=== PATIENT | female | born 1975 | race Caucasian/White ===

== ENCOUNTER → 2016-12-01 | Outpatient (CLI) | payer MEDICARE, OTHER ==
[~2016-12-01] MED LIST: 'PARAFON FORTE500 M1 PO; 'XANAX1 MG PO; ACETAMINOPHEN/O1 TA1 PO; AVPAK EXTENDED100 M1 PO; BRIN10TA PO; BUSPIRONE HCL15 MG PO; CEFADROXIL500 M1 PO; COMBIVENT1 AR1 IH; COUMADIN4 M2 PO; COUMADIN5 M2 PO; CYCLOBENZAPRINE10 MG PO; DAYPRO600 M1 PO; ENOXAPARIN80 MG/0.2 SC; HYDR12.5C PO; HYDROCODONE BIT1 T11 PO; LATU80TA PO; LEVOFLOXACIN500 MG PO; LIPITOR10 MG PO; LUNESTA3 MG PO; MEDROL DOSEPAK4 MG PO; MOBIC7.5 MG PO; MOTRIN600 MG PO; NEURONTIN300 MG PO; NORCO 325 MG-101 TAB PO; OXYCODONE HCL5 MG PO; PERCOCET 325 MG1 TA2 PO; PHENERGAN W/ DE30 ML PO; PRADAXA150 MG PO; PROAIR HFA0.09 MG/AC INH; PROAIR HFA8.5 GM IH; PROMETHAZINE D240 ML PO; REMERON15 M2 PO; ROBAXIN750 MG PO; SINGULAIR10 MG PO; TOPAMAX200 MG PO; TRAZODONE100 MG PO; TYLENOL325 M1 PO; VALIUM5 MG PO; VIIBRYD20 M1 PO; VIIBRYD40 PO; XANAX0.5 MG PO; XANAX2 MG PO; XARE15TA PO; ZITHROMAX Z PA250 MG PO; ZOFRAN ODT4 MG SL; [UNRECOGNIZED DRUG - OTHER] PO
== END ==
LOC: US 11-25 06:30
DX: R10.9 Unspecified abdominal pain (principal)

== ENCOUNTER → 2016-12-17 | Day surgery (SDC) | payer MEDICARE, OTHER ==
[2016-12-15 09:48] LABS: BILIRUBIN NEGATIVE (NEGATIVE); BLOOD NEGATIVE (NEGATIVE); CLARITY CLEAR (CLEAR); COLOR YELLOW (YELLOW); GLUCOSE NEGATIVE (NEGATIVE); KETONE NEGATIVE (NEGATIVE); LEUKO ESTERASE NEGATIVE (NEGATIVE); NITRITE NEGATIVE (NEGATIVE); PROTEIN NEGATIVE (NEGATIVE); UROBILINOGEN 0.2 E.U./dl (0.2-1.0)
[2016-12-15 09:54] LABS: BACTERIA TRACE; WBC 0-2 wbc/hpf (0-5)
[2016-12-15 10:06] LABS: BASO # 0.1 10*3/uL (0.0-0.1); BASO % 0.9 % (0.0-1.0); EOS # 0.4 10*3/uL (0.0-0.4); EOS % 2.6 % (1.0-4.0); HEMATOCRIT 45.1 % (37.0-47.0); HEMOGLOBIN 14.9 g/dl (12.0-16.0); IG # 0.1 10*3/uL (0.0-0.1); LYMPH # 4.1 10*3/uL (1.3-4.4); MEAN CELL VOLUME 95.6 fl (81.0-99.0); MEAN CORPUSCULAR HGB 31.6 pg (27.0-31.0); MEAN PLATELET VOLUME 10.6 fl (9.6-12.3); MONO # 0.7 10*3/uL (0.1-1.0); MONO % 5.1 % (3.0-9.0); NEUT # 8.7 10*3/uL (2.3-7.9); NEUT % 61.8 % (47.0-73.0); PLATELET COUNT AUTOMATED 263 10*3/uL (130-400); RED BLOOD COUNT 4.72 10*6/uL (4.10-5.10)
[2016-12-15 10:31] LABS: BUN 7 mg/dl (7-24); CARBON DIOXIDE 24 mmol/L (21-32); CHLORIDE 113 mmol/L (98-107); EST GLOM FILT AFRICAN AMERICAN > 60 ml/min; GLUCOSE 74 mg/dL (65-99); POTASSIUM 3.2 mmol/L (3.5-5.1); SODIUM 145 mmol/L (136-145)
[2016-12-15 10:46] LABS: PROTHROMBIN TIME 10.6 SECONDS (9.0-12.4)
[~2016-12-17] VITALS: Ht 165.1 cm; Wt 68.9 kg
[~2016-12-17] MED LIST changes: +ENOXAPARIN30 MG/0.2 SC; +VITAMIN B12-FO1 EACH PO
--- NOTE | ~2016-12-17 | O ---
[place], [place] OPERATIVE NOTE NAME: HILLARY BURRELL [facility] #: [id number] UNIT #: [id number] ROOM: DOCTOR: KENNY MOSLEY MD BIRTHDATE: [birth year] DOS: 12/17/2016 PREOPERATIVE DIAGNOSIS: Multiple anterior abdominal wall hematomas. POSTOPERATIVE DIAGNOSIS: Multiple anterior abdominal wall hematomas. PROCEDURE: Incision and drainage of right lower quadrant abdominal wall hematoma, aspiration of left lower quadrant abdominal wall hematoma, aspiration of right lower quadrant abdominal wall hematoma. SURGEON: Kenny Mosley MD [employer] PHOTOGRAPHER: [id number]. ANESTHESIA: LMA. INDICATIONS: This is a 41-year-old lady who has a history of multiple anterior abdominal wall hematomas secondary to use of subcutaneous Lovenox who is here for the above-mentioned procedure. The procedure and its complications were explained to the patient in detail. Complications that were discussed included but were not limited to, bleeding, infection, and prolonged pain. She agreed to proceed. DESCRIPTION OF PROCEDURE: After identifying the patient, the patient was brought to the operating suite and laid in the supine position. After induction of general anesthesia, timeout procedure was called and parts were then painted and draped in the usual sterile fashion. The biggest hematoma was in the left lower quadrant/periumbilical region. This was approximately 2 x 1 cm. A 20 gauge needle was inserted into the hematoma cavity and approximately 4-5 mL of old dark blood was aspirated. Thereafter, the site of the hematoma was palpated, and it completely disappeared. Therefore, an I and D was not performed on this site. There were 3 other smaller hematomas on the right side of the abdominal wall. These were individually marked and each of those were attempted to be aspirated, but aspiration could not be done because of possibly the blood being clotted off. The largest one of these was approximately 1 x 0.5 cm. An incision of approximately 2 mm was made with the help of a knife and the hematoma cavity was entered. With the help of Hemostat, old clotted blood was drained and the hematoma cavity was then packed with the help of quarter inch iodoform. Dressing was placed. Local anesthesia was infiltrated in all the 4 sites and the patient was then extubated and brought back to the recovery room in a stable fashion. There were no complications. Dr. Kenny Mosley, the attending surgeon, was present throughout the operating case. [place], [place] OPERATIVE NOTE NAME: HILLARY BURRELL UNIT #: [id number] ROOM: DOCTOR: KENNY MOSLEY MD BIRTHDATE: [birth year] Kenny Mosley MD CM:OPRECORD:OPERATIVE NOTE [id number] KENNY MOSLEY MD 12/21/16 1015 interface
[2016-12-17 07:30] VITALS: BP 132/71
[2016-12-17 08:32] VITALS: BP 102/70
[2016-12-17 08:45] VITALS: BP 113/81
[2016-12-17 09:00] VITALS: BP 120/82
[2016-12-17 09:15] VITALS: BP 109/70
[2016-12-17 09:23] VITALS: BP 112/70
== END | disposition home or self-care (01) ==
LOC: SDC 12-15 08:45
PROVIDERS: Surgery
DX: S30.1XXA Contusion of abdominal wall, initial encounter (principal); T45.515A Adverse effect of anticoagulants, initial encounter; F41.9 Anxiety disorder, unspecified; I10 Essential (primary) hypertension; J44.9 Chronic obstructive pulmonary disease, unspecified; F31.9 Bipolar disorder, unspecified; Z86.711 Personal history of pulmonary embolism; Z87.01 Personal history of pneumonia (recurrent); Z90.710 Acquired absence of both cervix and uterus; Z98.51 Tubal ligation status; F17.210 Nicotine dependence, cigarettes, uncomplicated; Z82.49 Family history of ischemic heart disease and other diseases of the circulatory system

== ENCOUNTER 2017-01-18 19:22 | Emergency (ER) | payer MEDICARE, OTHER ==
[~2017-01-18] VITALS: Ht 165.1 cm; Wt 64.4 kg
[2017-01-18 20:01] LABS: HEMATOCRIT 44.4 % (37.0-47.0); HEMOGLOBIN 14.8 g/dl (12.0-16.0); MEAN CELL VOLUME 93.7 fl (81.0-99.0); MEAN CORPUSCULAR HGB 31.2 pg (27.0-31.0); MEAN CORPUSCULAR HGB CONC 33.3 g/dl (33.0-37.0); MEAN PLATELET VOLUME 10.8 fl (9.6-12.3); PLATELET COUNT AUTOMATED 248 10*3/uL (130-400); RED BLOOD COUNT 4.74 10*6/uL (4.10-5.10); RED CELL DISTRI WIDTH 13.6 % (0-14.5); WHITE BLOOD COUNT 12.2 10*3/uL (4.8-10.8)
[2017-01-18 20:19] LABS: ALBUMIN 3.7 gm/dl (3.1-4.5); ALKALINE PHOSPHATASE 56 U/L (45-117); BILIRUBIN, TOTAL 0.2 mg/dl (0.2-1.0); BUN 9 mg/dl (7-24); CARBON DIOXIDE 23 mmol/L (21-32); CHLORIDE 114 mmol/L (98-107); EST GLOM FILT AFRICAN AMERICAN > 60 ml/min; GLUCOSE 81 mg/dL (65-99); POTASSIUM 3.6 mmol/L (3.5-5.1); SGOT/AST 7 IU/L (3-35); SGPT/ALT 16 U/L (12-78); SODIUM 145 mmol/L (136-145); TOTAL PROTEIN 6.9 gm/dL (6.4-8.2)
[2017-01-18 20:26] LABS: EOSINOPHIL # 0.2 10*3/uL (0-0.4); EOSINOPHILS 2 % (1-4); LYMPHOCYTE # 6.7 10*3/uL (1.3-4.4); MONOCYTE # 0.9 10*3/uL (0.1-1.0); NEUTROPHIL # 4.4 10*3/uL (2.3-7.9); NEUTROPHILS 36 % (47-73); PLATELET SUFFICIENCY NORMAL (NORMAL); TOTAL CELLS COUNTED 100 #CELLS
[2017-01-19] MEDS ORDERED: DILANTIN100 MG PO (16:38)
[2017-01-19] MEDS ORDERED: PERCOCET 325 MG1 TA2 PO (19:11)
[2017-01-19] MEDS ORDERED: Fioricet 325 MG1 TAB PO (19:11)
== END 2017-01-18 21:15 | disposition home or self-care (01) ==
LOC: ED 19:22
PROVIDERS: Physician Assistant
DX: R51 Headache (principal); F17.200 Nicotine dependence, unspecified, uncomplicated; Z90.49 Acquired absence of other specified parts of digestive tract; Z88.6 Allergy status to analgesic agent; Z88.8 Allergy status to other drugs, medicaments and biological substances

== ENCOUNTER 2017-01-19 16:29 | Emergency (ER) | payer MEDICARE, OTHER ==
[~2017-01-19] VITALS: Wt 64.4 kg
[2017-01-19] MEDS ORDERED: DILANTIN100 MG PO (16:38)
[2017-01-19] MEDS ORDERED: PERCOCET 325 MG1 TA2 PO (19:11)
[2017-01-19] MEDS ORDERED: Fioricet 325 MG1 TAB PO (19:11)
== END 2017-01-19 19:39 | disposition home or self-care (01) ==
LOC: ED 16:29
DX: G43.909 Migraine, unspecified, not intractable, without status migrainosus (principal); D68.62 Lupus anticoagulant syndrome; Z88.6 Allergy status to analgesic agent; Z88.8 Allergy status to other drugs, medicaments and biological substances; Z79.899 Other long term (current) drug therapy

== ENCOUNTER 2017-01-27 08:20 | Emergency (ER) | payer MEDICARE, OTHER ==
[~2017-01-27] VITALS: Wt 63.5 kg
[~2017-01-27 08:20] MED LIST changes: +DILANTIN100 MG PO; +Fioricet 325 MG1 TAB PO
[2017-01-27] MEDS ORDERED: MIRTAZAPINE15 M2 PO (08:26)
[2017-01-27] MEDS ORDERED: FOLBEE PLUS1 TAB PO (08:26)
[2017-01-27 08:42] LABS: BILIRUBIN NEGATIVE (NEGATIVE); BLOOD NEGATIVE (NEGATIVE); CLARITY CLOUDY (CLEAR); COLOR YELLOW (YELLOW); GLUCOSE NEGATIVE (NEGATIVE); KETONE NEGATIVE (NEGATIVE); LEUKO ESTERASE NEGATIVE (NEGATIVE); NITRITE NEGATIVE (NEGATIVE); PH 6.5 (5.0-9.0); PROTEIN TRACE (NEGATIVE); SPECIFIC GRAVITY 1.015 (1.005-1.030); UROBILINOGEN 0.2 E.U./dl (0.2-1.0)
[2017-01-27 08:51] LABS: URINE REFLEX COMMENT NO (NO)
[2017-01-27 09:06] LABS: BASO # 0.1 10*3/uL (0.0-0.1); BASO % 0.8 % (0.0-1.0); EOS # 0.4 10*3/uL (0.0-0.4); EOS % 2.5 % (1.0-4.0); HEMATOCRIT 45.2 % (37.0-47.0); HEMOGLOBIN 14.9 g/dl (12.0-16.0); IG # 0.1 10*3/uL (0.0-0.1); LYMPH # 3.3 10*3/uL (1.3-4.4); LYMPH % 23.2 % (27.0-41.0); MEAN CELL VOLUME 95.2 fl (81.0-99.0); MEAN CORPUSCULAR HGB 31.4 pg (27.0-31.0); MEAN PLATELET VOLUME 10.9 fl (9.6-12.3); MONO # 0.7 10*3/uL (0.1-1.0); MONO % 4.9 % (3.0-9.0); NEUT # 9.7 10*3/uL (2.3-7.9); NEUT % 68.2 % (47.0-73.0); PLATELET COUNT AUTOMATED 254 10*3/uL (130-400); RED BLOOD COUNT 4.75 10*6/uL (4.10-5.10); RED CELL DISTRI WIDTH 13.9 % (0-14.5); WHITE BLOOD COUNT 14.3 10*3/uL (4.8-10.8)
[2017-01-27 09:19] LABS: BUN 9 mg/dl (7-24); CARBON DIOXIDE 25 mmol/L (21-32); CHLORIDE 115 mmol/L (98-107); EST GLOM FILT AFRICAN AMERICAN > 60 ml/min; GLUCOSE 76 mg/dL (65-99); POTASSIUM 3.7 mmol/L (3.5-5.1); SODIUM 143 mmol/L (136-145)
[2017-01-27] MEDS ORDERED: NAPROSYN500 MG PO (10:02)
== END 2017-01-27 10:34 | disposition home or self-care (01) ==
LOC: ED 08:20
PROVIDERS: Emergency Medicine
DX: R10.9 Unspecified abdominal pain (principal); F17.200 Nicotine dependence, unspecified, uncomplicated; G43.909 Migraine, unspecified, not intractable, without status migrainosus; M79.7 Fibromyalgia; E78.5 Hyperlipidemia, unspecified; F31.9 Bipolar disorder, unspecified; Z88.6 Allergy status to analgesic agent

== ENCOUNTER 2017-05-01 14:37 | Emergency (ER) | payer MEDICARE, OTHER ==
[~2017-05-01 14:37] MED LIST changes: +FOLBEE PLUS1 TAB PO; +MIRTAZAPINE15 M2 PO; +NAPROSYN500 MG PO
[2017-05-01 15:08] LABS: BASO # 0.1 10*3/uL (0.0-0.1); BASO % 0.7 % (0.0-1.0); EOS # 0.4 10*3/uL (0.0-0.4); EOS % 2.4 % (1.0-4.0); HEMATOCRIT 42.9 % (37.0-47.0); HEMOGLOBIN 14.5 g/dl (12.0-16.0); IG # 0.1 10*3/uL (0.0-0.1); LYMPH # 2.8 10*3/uL (1.3-4.4); LYMPH % 18.6 % (27.0-41.0); MEAN CELL VOLUME 94.9 fl (81.0-99.0); MEAN CORPUSCULAR HGB 32.1 pg (27.0-31.0); MEAN CORPUSCULAR HGB CONC 33.8 g/dl (33.0-37.0); MEAN PLATELET VOLUME 10.7 fl (9.6-12.3); MONO # 0.8 10*3/uL (0.1-1.0); MONO % 5.4 % (3.0-9.0); NEUT % 72.4 % (47.0-73.0); PLATELET COUNT AUTOMATED 245 10*3/uL (130-400); RED BLOOD COUNT 4.52 10*6/uL (4.10-5.10); RED CELL DISTRI WIDTH 12.8 % (0-14.5); WHITE BLOOD COUNT 15.2 10*3/uL (4.8-10.8)
[2017-05-01 15:18] LABS: INTERNATIONAL NORM RATIO 1.1 (2.0-3.5); PROTHROMBIN TIME 11.2 SECONDS (9.0-12.4)
[2017-05-01 15:26] LABS: ALBUMIN 3.8 gm/dl (3.1-4.5); ALKALINE PHOSPHATASE 79 U/L (45-117); BILIRUBIN, TOTAL 0.3 mg/dl (0.2-1.0); BUN 7 mg/dl (7-24); CARBON DIOXIDE 25 mmol/L (21-32); CHLORIDE 109 mmol/L (98-107); EST GLOM FILT AFRICAN AMERICAN > 60 ml/min; GLUCOSE 100 mg/dL (65-99); MAGNESIUM 1.9 mg/dL (1.5-2.1); POTASSIUM 3.6 mmol/L (3.5-5.1); SGPT/ALT 32 U/L (12-78); SODIUM 139 mmol/L (136-145)
[2017-05-01 15:27] LABS: SGOT/AST 40 IU/L (3-35)
[2017-05-01 15:37] LABS: TROPONIN I < 0.015 ng/ml (<0.045)
== END 2017-05-01 20:27 | disposition home or self-care (01) ==
LOC: ED 14:37
PROVIDERS: Emergency Medicine
DX: J18.9 Pneumonia, unspecified organism (principal); J93.9 Pneumothorax, unspecified; I26.99 Other pulmonary embolism without acute cor pulmonale; J45.909 Unspecified asthma, uncomplicated; E78.5 Hyperlipidemia, unspecified; R11.2 Nausea with vomiting, unspecified; Z88.6 Allergy status to analgesic agent; Z88.8 Allergy status to other drugs, medicaments and biological substances; Z79.899 Other long term (current) drug therapy; Z87.891 Personal history of nicotine dependence

== ENCOUNTER → 2017-07-01 | Outpatient (CLI) | payer MEDICARE, OTHER ==
[2017-07-01 09:29] LABS: CREATININE 0.93 mg/dL (0.55-1.02)
== END | disposition home or self-care (01) ==
LOC: MAMMO 08:00 → LAB 08:57
PROVIDERS: Nurse Practitioner Family
DX: D73.5 Infarction of spleen (principal); R10.9 Unspecified abdominal pain; R63.5 Abnormal weight gain; J20.9 Acute bronchitis, unspecified

== ENCOUNTER → 2017-07-05 | Outpatient (CLI) | payer MEDICARE, OTHER | END | disposition home or self-care (01) | LOC: CT 07-01 09:00 | DX: R10.13 Epigastric pain (principal); R10.32 Left lower quadrant pain; R63.4 Abnormal weight loss; D73.5 Infarction of spleen; R05 Cough; R09.81 Nasal congestion; J20.9 Acute bronchitis, unspecified; Z90.49 Acquired absence of other specified parts of digestive tract ==

== ENCOUNTER 2017-10-21 14:06 | Emergency (ER) | payer MEDICARE, OTHER ==
[~2017-10-21] VITALS: Ht 165.1 cm; Wt 61.2 kg
== END 2017-10-21 16:06 | disposition home or self-care (01) ==
LOC: ED 14:06
DX: S20.221A Contusion of right back wall of thorax, initial encounter (principal); F17.200 Nicotine dependence, unspecified, uncomplicated; Z90.710 Acquired absence of both cervix and uterus; Z98.51 Tubal ligation status; Z98.890 Other specified postprocedural states; Z90.89 Acquired absence of other organs; Z79.899 Other long term (current) drug therapy; Z88.5 Allergy status to narcotic agent; Z88.6 Allergy status to analgesic agent; Z88.8 Allergy status to other drugs, medicaments and biological substances; W01.198A Fall on same level from slipping, tripping and stumbling with subsequent striking against other object, initial encounter; Y93.89 Activity, other specified; Y92.89 Other specified places as the place of occurrence of the external cause; Y99.9 Unspecified external cause status

== ENCOUNTER 2018-01-04 19:55 | Emergency (ER) | payer MEDICARE, OTHER ==
[~2018-01-04] VITALS: Ht 165.1 cm; Wt 59.0 kg
[2018-01-04 20:30] LABS: BILIRUBIN NEGATIVE (NEGATIVE); BLOOD NEGATIVE (NEGATIVE); CLARITY CLEAR (CLEAR); COLOR YELLOW (YELLOW); GLUCOSE NEGATIVE (NEGATIVE); KETONE NEGATIVE (NEGATIVE); LEUKO ESTERASE NEGATIVE (NEGATIVE); NITRITE NEGATIVE (NEGATIVE); PH 5.5 (5.0-9.0); SPECIFIC GRAVITY 1.015 (1.005-1.030); UROBILINOGEN 0.2 E.U./dl (0.2-1.0)
[2018-01-04 20:42] LABS: EPITHELIAL CELLS 0-2; WBC 0-2 wbc/hpf (0-5)
[2018-01-04] MEDS ORDERED: MEDI-PATCH WIT1 EACH T (22:14)
== END 2018-01-04 22:44 | disposition home or self-care (01) ==
LOC: ED 19:55
PROVIDERS: Nurse Practitioner
DX: M54.41 Lumbago with sciatica, right side (principal); Z88.6 Allergy status to analgesic agent; Z88.8 Allergy status to other drugs, medicaments and biological substances; Z79.899 Other long term (current) drug therapy

== ENCOUNTER → 2018-08-11 | Outpatient (CLI) | payer MEDICARE, OTHER ==
[~2018-08-11] MED LIST changes: +MEDI-PATCH WIT1 EACH T
== END | disposition home or self-care (01) ==
LOC: RAD 12:15
DX: R06.2 Wheezing (principal); R05 Cough; R09.89 Other specified symptoms and signs involving the circulatory and respiratory systems

== ENCOUNTER 2019-09-03 16:38 | Emergency (ER) | payer MEDICARE ==
[~2019-09-03] VITALS: Ht 165.1 cm; Wt 59.0 kg
[2019-09-03 18:06] LABS: BASO # 0.1 10*3/uL (0.0-0.1); BASO % 0.9 % (0.0-1.0); EOS # 0.1 10*3/uL (0.0-0.4); EOS % 0.8 % (1.0-4.0); HEMOGLOBIN 16.4 g/dl (12.0-16.0); LYMPH # 2.4 10*3/uL (1.3-4.4); MEAN CELL VOLUME 97.4 fl (81.0-99.0); MEAN CORPUSCULAR HGB 32.6 pg (27.0-31.0); MEAN CORPUSCULAR HGB CONC 33.5 g/dl (33.0-37.0); MEAN PLATELET VOLUME 10.5 fl (9.6-12.3); MONO # 0.7 10*3/uL (0.1-1.0); MONO % 5.9 % (3.0-9.0); NEUT # 8.1 10*3/uL (2.3-7.9); NEUT % 70.9 % (47.0-73.0); PLATELET COUNT AUTOMATED 225 10*3/uL (130-400); RED BLOOD COUNT 5.03 10*6/uL (4.10-5.10); WHITE BLOOD COUNT 11.4 10*3/uL (4.8-10.8)
[2019-09-03 18:21] LABS: ALBUMIN 3.7 gm/dl (3.1-4.5); ALKALINE PHOSPHATASE 62 U/L (45-117); BUN 16 mg/dl (7-24); CHLORIDE 114 mmol/L (98-107); CREATININE 0.72 mg/dL (0.55-1.02); SGOT/AST 7 IU/L (3-35); SGPT/ALT 15 U/L (12-78); SODIUM 142 mmol/L (136-145); TOTAL PROTEIN 7.2 gm/dL (6.4-8.2)
[2019-09-03 18:53] LABS: BILIRUBIN NEGATIVE (NEGATIVE); BLOOD NEGATIVE (NEGATIVE); CLARITY CLEAR (CLEAR); COLOR STRAW (YELLOW); GLUCOSE NEGATIVE (NEGATIVE); KETONE NEGATIVE (NEGATIVE); LEUKO ESTERASE NEGATIVE (NEGATIVE); NITRITE NEGATIVE (NEGATIVE); PH 6.5 (5.0-9.0); SPECIFIC GRAVITY <= 1.005 (1.005-1.030); UROBILINOGEN 0.2 E.U./dl (0.2-1.0)
[2019-09-03 18:54] LABS: URINE AMPHETAMINES < 1000 (1000ng/ml); URINE BARBITURATES < 200 (200ng/ml); URINE BENZODIAZEPINES < 200 (200ng/ml); URINE CANNABINOIDS (THC) < 50 (50ng/ml); URINE COCAINE > 300 (300ng/ml); URINE METHADONE < 300 (300ng/ml); URINE OPIATES < 300 (300ng/ml)
[2019-09-03 19:07] LABS: URINE PHENCYCLIDINE < 25 (25ng/ml)
== END 2019-09-03 20:27 | disposition home or self-care (01) ==
LOC: ED 16:38
PROVIDERS: Nurse Practitioner
DX: G43.909 Migraine, unspecified, not intractable, without status migrainosus (principal); I10 Essential (primary) hypertension; J44.9 Chronic obstructive pulmonary disease, unspecified; G89.29 Other chronic pain; F17.200 Nicotine dependence, unspecified, uncomplicated; Z88.5 Allergy status to narcotic agent; Z88.8 Allergy status to other drugs, medicaments and biological substances; Z88.6 Allergy status to analgesic agent; Z90.710 Acquired absence of both cervix and uterus; Z90.49 Acquired absence of other specified parts of digestive tract

== ENCOUNTER 2020-12-09 19:55 | Emergency (ER) | payer MEDICARE ==
[~2020-12-09] VITALS: Ht 167.6 cm; Wt 68.0 kg
[2020-12-09 20:22] LABS: BASO # 0.1 10*3/uL (0.0-0.1); BASO % 0.7 % (0.0-1.0); EOS # 0.1 10*3/uL (0.0-0.4); EOS % 0.4 % (1.0-4.0); HEMATOCRIT 50.3 % (37.0-47.0); LYMPH # 1.8 10*3/uL (1.3-4.4); LYMPH % 8.5 % (27.0-41.0); MEAN CELL VOLUME 96.9 fl (81.0-99.0); MEAN PLATELET VOLUME 10.3 fl (9.6-12.3); MONO % 4.7 % (3.0-9.0); NEUT # 18.2 10*3/uL (2.3-7.9); NEUT % 84.7 % (47.0-73.0); PLATELET COUNT AUTOMATED 236 10*3/uL (130-400); RED BLOOD COUNT 5.19 10*6/uL (4.10-5.10); RED CELL DISTRI WIDTH 12.9 % (0-14.5); WHITE BLOOD COUNT 21.5 10*3/uL (4.8-10.8)
[2020-12-09 20:35] LABS: BUN 11 mg/dl (7-24); CHLORIDE 107 mmol/L (98-107); CREATININE 0.86 mg/dL (0.55-1.02); ETHYL ALCOHOL < 3.0 mg/dl (<3); POTASSIUM 3.6 mmol/L (3.5-5.1); SODIUM 136 mmol/L (136-145)
[2020-12-09 22:45] LABS: BILIRUBIN 1+ (Negative); BLOOD Negative (Negative); CLARITY Turbid (Clear); COLOR Dark Yellow (Yellow); GLUCOSE Negative (Negative); KETONE 1+ (Negative); LEUKO ESTERASE Trace (Negative); NITRITE Negative (Negative); SPECIFIC GRAVITY >= 1.030 (1.001-1.030)
[2020-12-09 22:53] LABS: URINE AMPHETAMINES < 1000 (1000ng/ml); URINE BARBITURATES < 200 (200ng/ml); URINE BENZODIAZEPINES > 200 (200ng/ml); URINE CANNABINOIDS (THC) > 50 (50ng/ml); URINE COCAINE > 300 (300ng/ml); URINE METHADONE < 300 (300ng/ml); URINE OPIATES < 300 (300ng/ml); URINE PHENCYCLIDINE < 25 (25ng/ml)
[2020-12-09 23:02] LABS: EPITHELIAL CELLS TNTC
[2020-12-09 23:03] LABS: BACTERIA 1+
== END 2020-12-10 00:25 | disposition designated cancer center or children's hospital (05) ==
LOC: ED 19:55
PROVIDERS: Internal Medicine
DX: S22.41XA Multiple fractures of ribs, right side, initial encounter for closed fracture (principal); S22.059A Unspecified fracture of T5-T6 vertebra, initial encounter for closed fracture; S22.069A Unspecified fracture of T7-T8 vertebra, initial encounter for closed fracture; S22.089A Unspecified fracture of T11-T12 vertebra, initial encounter for closed fracture; D72.829 Elevated white blood cell count, unspecified; Z88.5 Allergy status to narcotic agent; Z88.8 Allergy status to other drugs, medicaments and biological substances; Z88.6 Allergy status to analgesic agent; Z90.49 Acquired absence of other specified parts of digestive tract; Z90.89 Acquired absence of other organs; Z90.711 Acquired absence of uterus with remaining cervical stump; Z98.51 Tubal ligation status; V89.2XXA Person injured in unspecified motor-vehicle accident, traffic, initial encounter; Y93.I9 Activity, other involving external motion; Y92.488 Other paved roadways as the place of occurrence of the external cause; Y99.8 Other external cause status